=== PATIENT | female | born 1955 | race African-American/Black ===

== ENCOUNTER 2019-07-28 12:24 | Outpatient (CLI) | payer OTHER, SELFPAY ==
--- NOTE | ~2019-07-28 | US_ITS ---
EXAMINATION: US venous doppler LE RT DATE: 07/28/2019 13:00 INDICATION: Right lower limb pain. TECHNIQUE: Grayscale ultrasound images without and with compression and Doppler ultrasound images of the right lower extremity veins were obtained. COMPARISON: None. FINDINGS: The visualized portions of right common femoral vein, profunda (deep) femoral vein, femoral vein, pop liteal vein, peroneal veins, posterior tibial veins, and greater saphenous vein outflow are patent. IMPRESSION: 1. No deep venous thrombosis. Reviewed, dictated and finalized at location A. [facility]
== END 2019-07-28 12:25 | disposition home or self-care (01) ==
LOC: ANHIMG 12:31
PROVIDERS: PCP Family Medicine; Visit Provider Nurse Practitioner
DX: M79.671 Pain in right foot (principal); M79.661 Pain in right lower leg
CPT/HCPCS: 93971

== ENCOUNTER 2020-04-22 15:56 | Outpatient (CLI) | payer OTHER, SELFPAY ==
--- NOTE | ~2020-04-22 | XR_ITS ---
EXAMINATION: XR knee RT 3V DATE: 04/22/2020 16:14 INDICATION: Right knee pain. TECHNIQUE: 3 views of right knee were obtained. COMPARISON: None. FINDINGS: Bone alignment is normal. No fracture. There is mild tricompartmental osteoarthritis. There is a small knee joint effusion. IMPRESSION: 1. Mild right knee osteoarthritis. 2. Small right knee joint effusion. Reviewed, dictated and finalized at location A. ICIAN REPRESENTATIVE
== END 2020-04-22 15:57 | disposition home or self-care (01) ==
PROVIDERS: PCP Family Medicine; Visit Provider Nurse Practitioner Family
DX: M17.11 Unilateral primary osteoarthritis, right knee (principal); M25.461 Effusion, right knee
CPT/HCPCS: 73562

== ENCOUNTER 2020-09-04 13:58 | Outpatient (CLI) | payer OTHER, SELFPAY ==
--- NOTE | ~2020-09-04 | DEXA_ITS ---
Bone Density Report Name: Rhoda Hurt Age: 64 Sex: Female Ethnicity: Black Date of : 1955 Indication: osteopenia; height loss; postmenopausal Referring Provider: Gina Phan Study: Bone densitometry was performed. Exam Date: September 04, 2020 Accession number: [id number] Bone Density: Region BMD T-score Z-score Classification AP Spine (L1-L4) 0.846 -1.8 -0.8 Osteopenia Femoral Neck (Left) 0.652 -1.8 -0.8 Osteopenia Total Hip (Left) 0.770 -1.4 -0.7 Osteopenia Total Hip Bilateral Avg 0.760 -1.5 -0.8 Osteopenia Femoral Neck (Right) 0.668 -1.6 -0.7 Osteopenia Total Hip (Right) 0.748 -1.6 -0.8 Osteopenia World Health Organization criteria for BMD impression classify patients as: Normal (T-score at or above -1.0), Osteopenia (T-score between -1.0 and -2.5), or Osteoporosis (T-score at or below -2.5). 10-year Fracture Risk(1): Major Osteoporotic Fracture 4.1% Hip Fracture 0.5% Reported Risk Factors: [place] (Black), Neck BMD=0.652, BMI=23.0 (1) FRAX(R) Version 3.08. Fracture probability calculated for an untreated patient. Fracture probability may be lower if the patient has received treatment. Previous Exams: Region Exam Age BMD T-score BMD Change BMD Change Date g/cm2 vs Baseline vs Previous AP Spine(L1-L4) 09/04/2020 64 0.846 -1.8 -0.012(-1.4%) -0.012(-1.4%) 07/29/2018 62 0.858 -1.7 Total Hip(Left) 09/04/2020 64 0.770 -1.4 -0.022(-2.8%) -0.022(-2.8%) 07/29/2018 62 0.792 -1.2 Total Hip(Right) 09/04/2020 64 0.748 -1.6 0.002(0.2%) 0.002(0.2%) 07/29/2018 62 0.746 -1.6 *Denotes significance at 95% confidence level, LSC for AP Spine = 0.022 g/cm2, LSC for Total Hip = 0.027 g/cm2 Clinical Information Provided by Patient: Patient maximum height was 69 Menopause Age: 43 Drinks caffeinated beverages Onset of menses at age 14 Number of children 2 Impression: The patient has low bone mass, based on the Total Spine T-score. The patient has an estimated ten-year risk of hip fracture of 0.5% and an estimated ten-year risk of major fracture of 4.1%, based on the WHO FRAX algorithm. No significant bone loss was observed. Discussion: BONE DENSITY IS LOW AT ONE OR MORE SKELETAL SITES. This patient's lowest T-score is low at one or more skeletal sites. It meets the World Health Organization's (WHO) criteria for ?low bone mass? (T-score between -1.0 and -2.5). The patient's 10-year risk of fracture as calculated
== END 2020-09-04 13:59 | disposition home or self-care (01) ==
LOC: ANHIMG 14:00
PROVIDERS: PCP Family Medicine; Visit Provider Student in an Organized Health Care Education/Training Program
DX: Z78.0 Asymptomatic menopausal state (principal); M16.0 Bilateral primary osteoarthritis of hip
CPT/HCPCS: 77080

== ENCOUNTER → 2023-03-04 15:10 | Outpatient (CLI) | payer MEDICARE, SELFPAY ==
--- NOTE | ~2023-03-04 | XR_ITS ---
EXAMINATION: XR hip LT min 2V INDICATION: Left hip pain TECHNIQUE: Two views of the left hip are obtained. COMPARISON: 05/16/2013 FINDINGS: There is moderate to severe osteoarthritis of the left hip with interval worsening. Bone al ignment is normal. There is no fracture. Subchondral cystic change is seen in the acetabulum and femo ral head. IMPRESSION: 1. Moderate to severe osteoarthritis of the left hip with interval worsening. Reviewed, dictated and finalized at location F.
== END ==
PROVIDERS: PCP Nurse Practitioner; Visit Provider Nurse Practitioner
DX: M16.12 Unilateral primary osteoarthritis, left hip (principal)
CPT/HCPCS: 73502

== ENCOUNTER 2025-04-27 16:19 | Emergency (ER) | payer OTHER, MEDICARE, SELFPAY ==
--- NOTE | ~2025-04-27 | XR_ITS ---
XR wrist LT min 3V 04/27/2025 18:43 Indication: Left wrist pain Procedure: 4 views left wrist Comparison: No prior studies for comparison. Findings: No fracture, subluxation or dislocation. No soft tissue abnormality. No foreign bodies. Impression: 1: No acute fracture. Reviewed, dictated and finalized at location O. OLE TACKER Impression: 1: No acute fracture.
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
--- OUTSIDE RECORDS SUMMARY | 2025-04-27 16:21 | XMS_ITS | Clinical Summary ---
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 Immunizations Immunization Administration Dates Next Due Influenza, Quadrivalent, Spl it, Preservative Free, Intramuscular 03/26/2020 Family History Medical History Relation Name Comments Colon cancer Father Rectal cancer Mother Relation Name Status Comments Father Mother Social History Tobacco Use Types Packs/Day Years Used Date Smoking Tobacco: Never Smokeless Tobacco: Never Tobacco Cessation:Counseling Given: Not Answered Comments No Sex and Gender Information Value Date Recorded Sex Assigned at Not on file Legal 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 Gender Identity Not on file Sexual Orientation Not on file 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 Not on file Not on file Not on file Obstetrics History Para Term AB IAB SAB Ectopic Multiple Livin g Live Births 2 2 2 Date Outcome GA Total Labor Labor/2nd/3rd Weight Sex Type Anes PTL Geraldine A1 A5 Name Clin 1974 Term 3.374 kg (7 lb 7 oz) M Vaginal 1995 Term 4.338 kg (9 lb 9 oz) F Vaginal Last Filed Vital Signs Vital Sign Reading Time Taken Comments Blood Pressure 122/70 09/18/2024 9:20 AM CDT Pulse 85 09/18/2024 9:20 AM CDT Temperature 36.4 C (97.6 F) 09/18/2024 9:20 AM CDT Respiratory Rate 20 09/18/2024 9:20 AM CDT Oxygen Saturation 99% 09/18/2024 9:20 AM CDT Inhaled Oxygen Concentration - - Weight 66.7 kg (147 lb) 09/18/2024 9:20 AM CDT Height 172.7 cm (5' 7.99) 03/21/2024 2:03 PM CD T Body Mass Index 22.36 03/21/2024 2:03 PM CDT Plan of Treatment Health Maintenance Due Date Last Done Comments Colon Cancer Screening-Colonoscopy 1955 Depression Screening 1955 Fall Risk Assessment 1955 Hepatitis C Screening 1955 Osteoporosis Screening-Bone Density Scan 1955 DTaP/Tdap/Td Vaccine (1 - Tdap) 10/14/1966 Hepatitis B Screening 10/14/1973 Pneumococcal vaccine 65+ (1 of 1 - PCV) 10/14/2005 Zoster Vaccine (1 of 2) 10/14/2005 Breast Cancer Screening-Mammogram 09/07/2024 09/08/2023, 09/08/2023, 06/30/2022, Additional history exists Influenza Vaccine (#1) 2025 03/26/2020 Well Visit 65+ 03/21/2025 03/21/2024, 11/03/2022 [place] [address] [facility] [place] [address] [facility] [place] [address] Care Teams Final Inspector Truck Trailer Relationship Specialty Start Date End Date Glenis Huang MD PCP - General Family Practice 08/21/20
[2025-04-27 16:23] VITALS: BP 108/57; PULSE 95; RESP 16; TEMP 36.4; O2SAT 97
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
--- NOTE | 2025-04-27 18:50 | PC.NURSE ---
called CT made aware of IV and Green tiop
--- OUTSIDE RECORDS SUMMARY | 2025-04-27 19:50 | XMS_ITS | Clinical Summary ---
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
[2025-04-27 20:24] LABS: Estimated CRCL calculation 47 ml/min; Estimated Glomerular Filt Rate 55
[2025-04-27 21:01] VITALS: BP 113/63; PULSE 95; RESP 17; TEMP 36.6; O2SAT 100
[2025-04-27 21:24] VITALS: BP 113/63; PULSE 95; RESP 17; TEMP 36.6; O2SAT 100
== END 2025-04-27 21:26 | disposition home or self-care (01) ==
PROVIDERS: Emergency Provider Family Medicine; PCP Family Medicine
DX: S20.212A Contusion of left front wall of thorax, initial encounter (principal); E55.9 Vitamin D deficiency, unspecified; M85.80 Other specified disorders of bone density and structure, unspecified site; M19.90 Unspecified osteoarthritis, unspecified site; Z86.0100 Personal history of colon polyps, unspecified; M47.812 Spondylosis without myelopathy or radiculopathy, cervical region; R91.1 Solitary pulmonary nodule; R93.89 Abnormal findings on diagnostic imaging of other specified body structures; V49.40XA Driver injured in collision with unspecified motor vehicles in traffic accident, initial encounter
CPT/HCPCS: 70450; 71260; 72125; 73110; 74177; 99284; Q9967